=== PATIENT | female | born 2000 | race African-American/Black ===

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

== ENCOUNTER → 2020-08-08 | Outpatient (CLI) | payer OTHER ==
--- NOTE | 2020-08-08 08:08 | RAD ---
US PELVIS History: DUFSUNTIONAL UTERINE BLEEDING Comparison: None. Technique: Sonographic examination of the pelvis was performed with transabdominal technique. Findings: Uterus- Size: 6.0 x 3.3 x 4.5 cm. Uterine parenchyma: Homogeneous without fibroids. Cervix: Unremarkable. Endometrium- Endometrial Stripe: No abnormal fluid collections in the endometrial cavity, no obvious mass, and no abnormal blood flow within the endometrium by Doppler. Thickness: 1.0 cm. Adnexa- Right Ovary: Identified and appears normal. Size: 2.2 x 1.8 x 1.8 cm. Doppler: Normal. Left Ovary: Identified and appears normal. Size: 2.4 x 1.5 x 1.8 cm. Doppler: Normal. Mass: No abnormal adnexal masses. Fluid: No abnormal free fluid in the pelvis. Additional findings: None. Impression: 1. Normal pelvic ultrasound. Electronically signed by: Luis Collado MD (08/08/2020 8:06 AM) [facility]
== END ==
LOC: US 07:09
PROVIDERS: ATTEND Obstetrics & Gynecology
DX: N93.8 Other specified abnormal uterine and vaginal bleeding (principal)
CPT/HCPCS: 76830; 76856